=== PATIENT | female | born 1995 | race Caucasian/White ===

== ENCOUNTER 2018-07-23 10:53 | Emergency (ER) | payer BC ==
[~2018-07-23] VITALS: Ht 165.1 cm; Wt 90.7 kg
[~2018-07-23 10:53] MED LIST: NAPROSYN500 MG PO; RETIN A 0.05%; VENLAFAXINE75 M1 PO; XANAX0.5 MG PO
[2018-07-23] MEDS ORDERED: ESCITALOPRAM OX10 MG PO (11:00)
[2018-07-23 11:24] LABS: BASO % 0.4 % (0.0-1.0); EOS % 0.1 % (1.0-4.0); HEMATOCRIT 46.7 % (37.0-47.0); HEMOGLOBIN 15.8 g/dl (12.0-16.0); LYMPH # 0.8 10*3/uL (1.3-4.4); LYMPH % 9.1 % (27.0-41.0); MEAN CELL VOLUME 89.3 fl (81.0-99.0); MEAN CORPUSCULAR HGB 30.2 pg (27.0-31.0); MEAN CORPUSCULAR HGB CONC 33.8 g/dl (33.0-37.0); MEAN PLATELET VOLUME 11.5 fl (9.6-12.3); MONO # 0.3 10*3/uL (0.1-1.0); MONO % 2.9 % (3.0-9.0); NEUT # 7.4 10*3/uL (2.3-7.9); NEUT % 87.1 % (47.0-73.0); PLATELET COUNT AUTOMATED 199 10*3/uL (130-400); RED BLOOD COUNT 5.23 10*6/uL (4.10-5.10); RED CELL DISTRI WIDTH 12.4 % (0-14.5); WHITE BLOOD COUNT 8.5 10*3/uL (4.8-10.8)
[2018-07-23 11:47] LABS: ALBUMIN 3.8 gm/dl (3.1-4.5); ALKALINE PHOSPHATASE 103 U/L (45-117); BUN 8 mg/dl (7-24); CHLORIDE 110 mmol/L (98-107); CREATININE 0.75 mg/dL (0.55-1.02); LIPASE 77 U/L (73-393); POTASSIUM 4.1 mmol/L (3.5-5.1); SGOT/AST 14 IU/L (3-35); SGPT/ALT 24 U/L (12-78); SODIUM 141 mmol/L (136-145); TOTAL PROTEIN 8.1 gm/dL (6.4-8.2)
[2018-07-23 12:08] LABS: BILIRUBIN NEGATIVE (NEGATIVE); BLOOD NEGATIVE (NEGATIVE); CLARITY SL CLOUDY (CLEAR); COLOR YELLOW (YELLOW); GLUCOSE NEGATIVE (NEGATIVE); KETONE NEGATIVE (NEGATIVE); LEUKO ESTERASE NEGATIVE (NEGATIVE); NITRITE NEGATIVE (NEGATIVE); PH 8.5 (5.0-9.0); UROBILINOGEN 0.2 E.U./dl (0.2-1.0)
[2018-07-23 12:26] LABS: BACTERIA 2+; MUCOUS 1+
[2018-07-23] MEDS ORDERED: ZOFRAN4 MG PO (12:28)
[2018-07-23] MEDS ORDERED: VISTARIL25 MG PO (12:28)
== END 2018-07-23 12:41 | disposition home or self-care (01) ==
LOC: ED 10:53
PROVIDERS: Nurse Practitioner Family
DX: F41.9 Anxiety disorder, unspecified (principal); R11.2 Nausea with vomiting, unspecified; Z79.899 Other long term (current) drug therapy

== ENCOUNTER 2018-12-13 21:15 | Emergency (ER) | payer BC ==
[~2018-12-13] VITALS: Ht 165.1 cm; Wt 95.3 kg
[~2018-12-13 21:15] MED LIST changes: +ESCITALOPRAM OX10 MG PO; +VISTARIL25 MG PO; +ZOFRAN4 MG PO
[2018-12-13] MEDS ORDERED: HYDROXYZINE HCL25 MG PO (21:19)
[2018-12-13] MEDS ORDERED: FLUOXETINE HCL10 MG PO (21:19)
== END 2018-12-14 01:00 | disposition home or self-care (01) ==
LOC: ED 21:15
DX: F41.9 Anxiety disorder, unspecified (principal); Z32.02 Encounter for pregnancy test, result negative; Z79.899 Other long term (current) drug therapy

== ENCOUNTER → 2025-03-23 | Outpatient (CLI) | payer OTHER ==
[~2025-03-23] MED LIST changes: +FLUOXETINE HCL10 MG PO; +HYDROXYZINE HCL25 MG PO
== END | disposition home or self-care (01) ==
LOC: LAB 01:09
PROVIDERS: ATTEND Nurse Practitioner Primary Care
DX: N92.0 Excessive and frequent menstruation with regular cycle (principal); L70.9 Acne, unspecified; B37.31 Acute candidiasis of vulva and vagina